=== PATIENT | male | born 1975 | race Caucasian/White ===

== ENCOUNTER 2018-04-25 09:31 | Emergency (ER) | payer BC ==
[2018-04-25 09:45] VITALS: RESP 18
[2018-04-25] MEDS ORDERED: KETOROLAC 60 MG/2 ML VIAL IM STA (10:44)
--- NOTE | 2018-04-25 11:40 | ED ---
Upper Extremity HPI - General Chief Complaint: Extremity Injury, Upper Stated Complaint: Hand pain, post surgery Time Seen by Provider: 04/25/18 09:51 Source: patient, RN notes reviewed Mode of arrival: ambulatory Limitations: no limitations - History of Present Illness Initial Comments: This a 42-year-old male presents emergency Department chief complaint of left hand pain and swelling. Patient states that he had an injury on April 18 in [place] when she was hit by a trailer door states that he fell fracturing his fingers. Patient had surgery on April 20 in which she had multiple screws placed in his left humerus. Patient states that he has been traveling back from [place] on since April 23 and states that his affect this morning states that he noticed swelling and pain associated with his left hand. He states it slightly discolored. Patient denies any paresthesias at this time. Patient reports no fever no chills. He states he is supposed to follow-up with a surgeon in [place]. Patient reports no chest pain or shortness of breath - Related Data Home Medications Medication Instructions Recorded Confirmed Empagliflozin/Linagliptin 1 tab PO DAILY 04/25/18 04/25/18 [Glyxambi 25 mg-5 mg Tablet] Lisinopril [Zestril] 20 mg PO DAILY 04/25/18 04/25/18 Pregabalin [Lyrica] 50 mg PO HS PRN 04/25/18 04/25/18 glipiZIDE [Glucotrol] 10 mg PO AC-BID 04/25/18 04/25/18 metFORMIN HCL [Glucophage] 1,000 mg PO BID 04/25/18 04/25/18 oxyCODONE-APAP 5-325MG [Percocet 2 tab PO Q4H PRN 04/25/18 04/25/18 5-325 mg] Allergies Allergy/AdvReac Type Severity Reaction Status Date / Time Penicillins Allergy Anaphylaxis Verified 04/25/18 10:21 Review of Systems ROS Statement: Those systems with pertinent positive or pertinent negative responses have been documented in the HPI. ROS Other: All systems not noted in ROS Statement are negative. Past Medical History Past Medical History: Diabetes Mellitus, Hypertension, Skin Disorder History of Any Multi-Drug Resistant Organisms: None Reported Additional Past Surgical History / Comment(s): left arm, groin Past Psychological History: No Psychological Hx Reported Smoking Status: Current every day smoker Past Alcohol Use History: None Reported Past Drug Use History: None Reported General Exam Limitations: no limitations General appearance: alert, in no apparent distress Head exam: Present: atraumatic, normocephalic, normal inspection Respiratory exam: Present: normal lung sounds bilaterally. Absent: respiratory distress, wheezes, rales, rhonchi, stridor Cardiovascular Exam: Present: regular rate, normal rhythm, normal heart sounds. Absent: systolic murmur, diastolic murmur, rubs, gallop, clicks Extremities exam: Present: other (Left upper extremity there is a surgical wound on the posterior aspect area is soft and minimally tender. Left forearm is soft nontender, there is moderate swelling starting from proximal wrist to the left hand Refill less than 2 seconds radial pulse is faint with palpation secondary to swelling though confirmed with Doppler at 92, skin is blanchable slightly pale it is not cool to the pressures equal warmth of both upper extremities) Skin exam: Present: warm, dry Course Vital Signs 04/25/18 04/25/18 09:41 12:02 Temperature 97.3 F L 97.0 F L Pulse Rate 94 87 Respiratory 18 18 Rate Blood Pressure 165/74 137/71 O2 Sat by Pulse 100 98 Oximetry Medical Decision Making - Medical Decision Making 42-year-old male presents from for swelling to his left hand after traveling and surgery. There is no evidence of DVT there is no evidence of arterial occlusion. Patient has radial pulses patient's arm was unwrapped and splint taken off the wound was inspected there is no signs of infection. His forearm, upper arm are soft there is no concerns for compartment syndrome. This appears to be related to dependent edema. Patient is advised that he is a have a recheck within 24-48 hours return for any worsening symptoms. Patient's arm was rewrapped with splint, Webrolls and eric wrap Disposition Clinical Impression: Edema of hand Disposition: HOME SELF-CARE Condition: Stable Instructions: Edema (ED) Additional Instructions: Please return to the Emergency Department if symptoms worsen or any other concerns. Is patient prescribed a controlled substance at d/c from ED?: No Referrals: Jaclyn Beckett MD [Primary Care Provider] - 1-2 days
[2018-04-25 12:03] VITALS: BP 137/71; PULSE 87; TEMP 97
--- NOTE | 2018-04-25 12:04 | US ---
EXAMINATION TYPE: US venous doppler duplex UE LT DATE OF EXAM: 04/25/2018 COMPARISON: NONE CLINICAL HISTORY: Pain. Left arm pain and swelling, patient recently had surgery to place pins in arm following trauma - left arm was shut in [employer] truck cargo door. SIDE PERFORMED: Left Difficult and limited study due to patient in a large amount of pain and has limited range of motio n in arm and unable to place arm in correct positions for exam. Left Arm: Appears negative for DVT Suboptimal study due to patient pain and limited range of motion per technologist. Satisfactory color flow is seen throughout. IMPRESSION: Suboptimal study without ultrasound evidence for acute deep or superficial venous thrombo sis in the left upper extremity.
== END 2018-04-25 12:33 | disposition home or self-care (01) ==
LOC: EC 09:31
DX: M96.89 Other intraoperative and postprocedural complications and disorders of the musculoskeletal system (principal); R60.0 Localized edema; G89.18 Other acute postprocedural pain; M79.642 Pain in left hand; I10 Essential (primary) hypertension; E11.9 Type 2 diabetes mellitus without complications; F17.200 Nicotine dependence, unspecified, uncomplicated; Z79.84 Long term (current) use of oral hypoglycemic drugs; Z79.899 Other long term (current) drug therapy; Z88.0 Allergy status to penicillin
CPT/HCPCS: 93971; 99283; 96372; J1885

== ENCOUNTER → 2021-09-07 | Outpatient (CLI) | payer BC ==
[2021-09-07 13:02] LABS: ALT 13 U/L (4-49); AST 20 U/L (17-59); African American GFR (CKD) >90 (>60 ml/min/1.73 sqM); Albumin 3.6 g/dL (3.5-5.0); Alkaline Phosphatase 183 U/L (38-126); Anion Gap 8 mmol/L; Bilirubin, Delta 0.4 mg/dL (0.0-0.2); Bilirubin,Unconjugated 0.2 mg/dL (0.0-1.1); Blood Urea Nitrogen 23 mg/dL (9-20); Carbon Dioxide 26 mmol/L (22-30); Chloride 104 mmol/L (98-107); Non-African American GFR(CKD) >90 (>60 ml/min/1.73 sqM); Potassium 4.7 mmol/L (3.5-5.1); Sodium 138 mmol/L (137-145); Total Bilirubin 0.6 mg/dL (0.2-1.3); Total Protein 6.9 g/dL (6.3-8.2)
--- NOTE | 2021-09-07 13:11 | XR ---
EXAMINATION TYPE: XR shoulder complete RT DATE OF EXAM: 09/07/2021 CLINICAL HISTORY: Right shoulder pain and limited range of motion. TECHNIQUE: Two views of the right shoulder are obtained. COMPARISON: None. FINDINGS: There is no acute fracture/dislocation evident in the right shoulder. Moderate narrowing o f acromioclavicular joint. Distal acromion morphology unremarkable. There is a 4 mm round density in ferior glenohumeral joint could reflect intra-articular loose body on internally rotated view not aníbal jillian seen on the transscapular view. The visualized ribs are intact. IMPRESSION: As above.
[2021-09-08 03:58] LABS: Chol/HDL Ratio 8.63 Ratio
== END | disposition home or self-care (01) ==
LOC: RADXRMAIN 11:52
PROVIDERS: ATTEND Internal Medicine
DX: M25.811 Other specified joint disorders, right shoulder (principal); E11.9 Type 2 diabetes mellitus without complications; I10 Essential (primary) hypertension
CPT/HCPCS: 36415; 80051; 80061; 80076; 82565; 83036; 83721; 84520

== ENCOUNTER → 2021-11-17 | Outpatient (CLI) | payer BC ==
--- NOTE | 2021-11-17 10:53 | US ---
EXAMINATION TYPE: US kidneys/renal and bladder DATE OF EXAM: 11/17/2021 COMPARISON: NONE CLINICAL HISTORY: R31.9 hematuria. Hematuria, DM, HTN EXAM MEASUREMENTS: Right Kidney: 12.8 x 7.9 x 7.5 cm Left Kidney: 12.5 x 6.4 x 7.6 cm Right Kidney: No hydronephrosis or masses seen Left Kidney: No hydronephrosis or masses seen Bladder: wnl Bilateral Jets seen: Yes There is no evidence for hydronephrosis at this point in time. No nephrolithiasis is seen. No eliceo s are identified. The urinary bladder is satisfactorily distended. Bilateral ureteral jets are seen . IMPRESSION: Source of hematuria not identified. If symptoms persist further investigation with CT uro gram would be warranted.
== END | disposition home or self-care (01) ==
LOC: RADUSWWP 10:21
PROVIDERS: ATTEND Internal Medicine
DX: R31.9 Hematuria, unspecified (principal)
CPT/HCPCS: 76770

== ENCOUNTER → 2022-04-13 | Outpatient (CLI) | payer BC ==
[2022-04-13 18:58] LABS: ALT 18 U/L (10-49); AST 16 U/L (14-35); Albumin 3.8 g/dL (3.8-4.9); Albumin/Globulin Ratio 1.12 (1.60-3.17); Alkaline Phosphatase 261 U/L (41-126); Bilirubin, Conjugated <0.20 mg/dL (0.20-0.40); Globulin 3.4 g/dL (1.6-3.3); Total Bilirubin <0.15 mg/dL (0.30-1.20); Total Protein 7.2 g/dL (6.2-8.2)
[2022-04-13 19:11] LABS: Chol/HDL Ratio 6.43 Ratio
== END | disposition home or self-care (01) ==
LOC: LABWHC1 12:10
PROVIDERS: ATTEND Physician Assistant
DX: E78.5 Hyperlipidemia, unspecified (principal); E11.9 Type 2 diabetes mellitus without complications
CPT/HCPCS: 36415; 80061; 80076; 83721

== ENCOUNTER → 2023-04-15 | Outpatient (CLI) | payer BC ==
--- NOTE | 2023-04-15 17:32 | XR ---
EXAMINATION TYPE: XR knee limited RT DATE OF EXAM: 04/15/2023 COMPARISON: None HISTORY: Pain, and 25.561 TECHNIQUE: Two-view right knee FINDINGS: Joint spaces are preserved. No joint effusion is evident. No acute fracture or dislocation is evident. IMPRESSION: 1. No acute osseous abnormality two-view right knee
== END | disposition home or self-care (01) ==
LOC: RADXRMAIN 16:01
PROVIDERS: ATTEND Internal Medicine
DX: M25.561 Pain in right knee (principal)

== ENCOUNTER → 2023-09-30 | Outpatient (CLI) | payer BC ==
[2023-09-30 17:54] LABS: African American GFR (CKD) 82 (>60 ml/min/1.73 sqM); Blood Urea Nitrogen 26 mg/dL (9-20); Non-African American GFR(CKD) 71 (>60 ml/min/1.73 sqM)
--- NOTE | 2023-10-01 08:53 | CT ---
EXAMINATION TYPE: CT chest w con DATE OF EXAM: 09/30/2023 COMPARISON: No prior chest x-ray this location. HISTORY: Abnormal chest xray x [address] DLP: 508.1 mGycm, Automated exposure control for dose reduction was used. CONTRAST: Performed injected with 100 cc mL of Isovue 300. TECHNIQUE: Axial images were obtained at 5 mm thick sections. Reconstructed images are reviewed on So[employer] computer in the coronal plane. FINDINGS: Portion of the thyroid visualized is normal. There is a small left and minimal right pleural effusion. Some compressive atelectasis is likely pres ent at the left lung base. Follow-up to clearing is recommended. Underlying masses cannot be excluded . No enlarged mediastinal or hilar adenopathy is evident. The ascending aorta diameter at the level o f the main pulmonary artery is 3.4 cm. The main pulmonary artery diameter at the bifurcation is 2.6 cm. Minimal pericardial fluid is present. Limited CT sections are obtained through the upper abdomen. Abdomen is essentially unremarkable. IMPRESSION: 1. Small left and minimal right pleural effusion. There is adjacent compressive atelectasis at the le ft base. Follow-up is recommended.
== END | disposition home or self-care (01) ==
LOC: RADCTMAIN 16:50
PROVIDERS: ATTEND Internal Medicine Rheumatology
DX: J90 Pleural effusion, not elsewhere classified (principal); J98.11 Atelectasis; E11.9 Type 2 diabetes mellitus without complications; R93.89 Abnormal findings on diagnostic imaging of other specified body structures
CPT/HCPCS: 82565; 84520; 71260; 36415; Q9967

== ENCOUNTER 2024-02-27 06:10 | Emergency (ER) | payer SELFPAY ==
--- NOTE | 2024-02-27 06:19 | ED ---
CPR HPI - General Stated Complaint: Unresponsive Time Seen by Provider: 02/27/24 06:17 - History of Present Illness Initial Comments: Patient is a 48-year-old male who presents to the ER today via EMS with CPR in progress. History is provided by EMS. They report that at 5 AM patient told his he could not catch his breath and he had some chest pain. Around 515 she found him unresponsive on the floor. EMS was called at 517 and arrived at the house within minutes. They found patient to be in PEA arrest. Resuscitation was initiated via ACLS protocols. Patient did have ROSC, patient was then transferred from his home to the ambulance for transport to the hospital. And route to the hospital they lost pulses and CPR was again resumed. Patient arrived at the hospital approximately 40 to 45 minutes after being found unresponsive, he had airway established with a Shiv airway, 5 of epinephrine prior to arrival. Glucose was in the 220s. MD Complaint: found unresponsive - Related Data Home Medications Medication Instructions Recorded Confirmed Empagliflozin/Linagliptin 1 tab PO DAILY 04/25/18 04/25/18 [Glyxambi 25 mg-5 mg Tablet] Pregabalin [Lyrica] 50 mg PO HS PRN 04/25/18 04/25/18 glipiZIDE [Glucotrol] 10 mg PO AC-BID 04/25/18 04/25/18 lisinopriL [Zestril] 20 mg PO DAILY 04/25/18 04/25/18 metFORMIN HCL [Glucophage] 1,000 mg PO BID 04/25/18 04/25/18 oxyCODONE-APAP 5-325MG [Percocet 2 tab PO Q4H PRN 04/25/18 04/25/18 5-325 mg] Allergies Allergy/AdvReac Type Severity Reaction Status Date / Time Penicillins Allergy Anaphylaxis Verified 04/25/18 10:21 Review of Systems ROS Statement: Those systems with pertinent positive or pertinent negative responses have been documented in the HPI. ROS Other: All systems not noted in ROS Statement are negative. Past Medical History Past Medical History: Diabetes Mellitus, Hypertension, Skin Disorder History of Any Multi-Drug Resistant Organisms: None Reported Additional Past Surgical History / Comment(s): left arm, groin Past Psychological History: No Psychological Hx Reported Past Alcohol Use History: None Reported Past Drug Use History: None Reported General Exam - General Exam Comments Initial Comments: Physical Exam GENERAL: Chronically ill-appearing gentleman in extremis HENT: Atraumatic. EYES: Pupils 4 mm fixed PULMONARY: No spontaneous respirations Coarse bilateral breath sounds CARDIOVASCULAR: Pulseless 3+ pitting edema to the mid abdomen ABDOMEN: Abdomen is firm, with pitting edema SKIN: Chronic skin changes of the left groin Pallor : Buried penis NEUROLOGIC: Unresponsive MUSCULOSKELETAL: No obvious deformities PSYCHIATRIC: Unable to assess Medical Decision Making - Medical Decision Making Was pt. sent in by a medical professional or institution ([facility], [facility], urgent care, hospital, or assisted...) When possible be specific @ -No Did you speak to anyone other than the patient for history (EMS, parent, family, police, friend...)? What history was obtained from this source @ -EMS Did you review nursing and triage notes (agree or disagree)? Why? @ -I reviewed and agree with nursing and triage notes Were old charts reviewed (outside hosp., previous admission, EMS record, old EKG, old radiological studies, urgent care reports/EKG's, assisted records)? Report findings @ -No old charts were reviewed Differential Diagnosis (chest pain, altered mental status, abdominal pain women, abdominal pain men, vaginal bleeding, weakness, fever, dyspnea, syncope, headache, dizziness, GI bleed, back pain, seizure, CVA, palpatations, mental health)? @ -Differential Chest Pain: Stable Angina, Unstable Angina, STEMI, NSTEMI Aortic Dissection, Pneumothorax, Musculoskeletal, Esophageal Spasm GERD, Cholecystitis, Pancreatitis, Zoster, this is not meant to be an all-inclusive list. EKG interpreted by me (3pts min.). @ -As above X-rays interpreted by me (1pt min.). @ -None done CT interpreted by me (1pt min.). @ -None done U/S interpreted by me (1pt. min.). @ -None done What testing was considered but not performed or refused? (CT, X-rays, U/S, labs)? Why? @ -None What meds were considered but not given or refused? Why? @ -None Did you discuss the management of the patient with other professionals (professionals i.e. [facility], [facility], lab, RT, psych nurse, clinical social worker, supply chain intern, teacher, probation officer, rn case management)? Give summary @ -Discussed with nursing staff and RT during resuscitation Was smoking cessation discussed for >3mins.? @ -No Was critical care preformed (if so, how long)? @ -10 minutes Were there social determinants of health that impacted care today? How? (Homelessness, low income, unemployed, alcoholism, drug addiction, transportation, low edu. Level, literacy, decrease access to med. care, snf, rehab)? @ -No Was there de-escalation of care discussed even if they declined (Discuss DNR or withdrawal of care, Hospice)? DNR status @ -No What co-morbidities impacted this encounter? (DM, HTN, Smoking, COPD, CAD, Cancer, CVA, ARF, Chemo, Hep., AIDS, mental health diagnosis, sleep apnea, morbid obesity)? @ -Diabetes, hypertension, hyperlipidemia Was patient admitted / discharged? Hospital course, mention meds given and rou te, prescriptions, significant lab abnormalities, going to OR and other pertinent info. @ - Family notified billet examiner notified Patient's PCP no longer practicing, medical receptionist assistant will sign certificate Undiagnosed new problem with uncertain prognosis? @ -No Drug Therapy requiring intensive monitoring for toxicity (Heparin, Nitro, Insulin, Cardizem)? @ -No Were any procedures done? @ -No Diagnosis/symptom? @ -Cardiac arrest Acute, or Chronic, or Acute on Chronic? @ -Acute Uncomplicated (without systemic symptoms) or Complicated (systemic symptoms)? @ -Default Side effects of treatment? @ -No Exacerbation, Progression, or Severe Exacerbation? @ -No Poses a threat to life or bodily function? How? (Chest pain, [place], [place], pneumonia, PE, COPD, DKA, ARF, appy, cholecystitis, CVA, Diverticulitis, Homicidal, Suicidal, threat to staff... and all critical care pts) @ -No Disposition Clinical Impression: Cardiac arrest Disposition: Referrals: Jaclyn Beckett MD [Primary Care Provider] - 1-2 days Time of Disposition: 06:15 Preliminary Cause of : cardiac arrest
== END 2024-02-27 09:47 | disposition expired ==
LOC: EC 06:10
DX: I46.9 Cardiac arrest, cause unspecified (principal); I10 Essential (primary) hypertension; E11.9 Type 2 diabetes mellitus without complications; E78.5 Hyperlipidemia, unspecified; Z88.0 Allergy status to penicillin; Z79.84 Long term (current) use of oral hypoglycemic drugs; Z79.899 Other long term (current) drug therapy
CPT/HCPCS: 92950; 99285